=== PATIENT | female | born 1975 | race African-American/Black ===

== ENCOUNTER 2019-02-22 07:43 | Emergency (ER) | payer SELFPAY ==
[~2019-02-22] VITALS: Ht 170.2 cm; Wt 69.0 kg
[~2019-02-22 07:43] MED LIST: ALBU2.5V13; IBUP100T7
[2019-02-22 08:28] VITALS: BP 122/82
[2019-02-22] MEDS ORDERED: KETOROLAC 30MG/ML VIAL IM ONE (08:30)
== END 2019-02-22 09:05 | disposition home or self-care (01) ==
LOC: ER 07:43
DX: R51 Headache (principal); J45.909 Unspecified asthma, uncomplicated; Z79.899 Other long term (current) drug therapy
CPT/HCPCS: 81025; 96372; 99283; J1885